=== PATIENT | female | born 1965 | race Caucasian/White ===

== ENCOUNTER → 2018-04-15 | Outpatient (CLI) | payer MEDICAID | LOC: FIMAGING 14:28 | PROVIDERS: ATTEND Physician Assistant | DX: Z01.818 Encounter for other preprocedural examination (principal); M16.11 Unilateral primary osteoarthritis, right hip; M25.451 Effusion, right hip ==

== ENCOUNTER 2018-05-12 06:01 | Inpatient (IN) | payer MEDICAID, OTHER ==
[~2018-05-12 06:01] MED LIST: ROPIVACAINE 0.2% 80 MG, EPINEPHrine 0.2 MG, KETOROLAC TROMETHAMINE 30 MG, morphINE 10 M... IU ONE; TRANEXAMIC ACID 1,000 MG in NS 100 ML IV ONE
--- NOTE | 2018-05-12 06:25 | PDIAF ---
- Diagnosis Diagnosis: right hip djd Code Status: Full Code - Medication Management Discharge Medications: Medications to Continue on Transfer NK [No Known Home Meds] 04/18/18 [Last Taken Unknown] Discharge Medications: Refer to the Discharge Home Medication list for PRN reason. - Orders Services needed: Physical Therapy Diet Recommendation: no restrictions on diet Diet Texture: Regular Texture Diet Additional Instructions: TOTAL JOINT ARTHROPLASTY DISCHARGE INSTRUCTIONS 1. Your surgeon follows the [facility] protocol for reducing your risk of DVT (blood clots) following surgery. Medication will be ordered to prevent blood clots. A sudden increase in calf pain and/or swelling could indicate a blood clot in your leg. If this occurs, please call your surgeon or his/her esl instructional assistant. An ultrasound of the leg may be necessary to diagnose a blood clot. If you have conditions that make you a higher risk for blood clots, your surgeon may use more aggressive ways to prevent them. Notify your surgeon if you think you are a high risk for blood clots. 2. Wear your white surgical stockings (BRETT hose) for 2 weeks. This decreases your swelling and may help prevent blood clots. It is ok to remove BRETT hose at night time to give your legs a break. 3. Swelling and bruising in the surgical leg is common. If you feel that it is excessive, please notify your surgeon. 4. Elevate your surgical leg with the ankle above the hip several times every day. Please keep the leg straight when you elevate by putting pillows under your foot. Do not put pillows under your knee. This will make being able to fully straighten more difficult. This is uncomfortable, but try to do it as much as possible. 5. For total knee replacements use compressive wrap on your knee for 3-5 days after surgery, then you can discontinue it. 6. Use a walker or crutches for 1-2 weeks. Progress your weight-bearing as tolerated. You may start to use a cane when you feel stable and safe. 7. You will receive physical therapy instructions in the hospital. Continue those exercises at home. There are additional exercises in the total joint booklet you were given before surgery. Outpatient physical therapy will begin 7- 10 days after surgery. Please schedule this in advance. 8. Use ice on your knee at least 3-5 times every day for 30 minutes. This helps reduce pain and swelling. Also use it at night before falling asleep. 9. Leave your surgical dressing in place for 2 weeks. Your dressing is water resistant, but not waterproof. Cover it with Saran Wrap or Vtkrd-c-Vxya before showering. You may shower as soon as you feel safe entering a shower. If you notice bleeding from your incision 2 or 3 days after surgery, please notify your surgeon. 10. Due to narcotics, decreased activity and altered diet, most patients experience constipation after surgery. Use ephy-ngp-vqvrqui stool softeners while you are on narcotics. 11. You may drive a car when you are comfortable bearing weight, have good muscular control of your leg and are off narcotics. This usually occurs 2-4 weeks after surgery, depending on which leg was operated on. 12. If there are questions not addressed here, please refer the [facility] book given for more information. If you still have questions, please contact your surgeon s office. 13. If you have a life-threatening emergency, please call 911 and go to the emergency room immediately. For non-life threatening emergencies, please call your physicians office for advice before going to the emergency room. - Follow Up Care Current Providers and Referrals: Matilda Thomas [Primary Care Provider] - Neto Singer MD [Medical Doctor] -
--- NOTE | 2018-05-12 06:25 | PDHPUP ---
History & Physical Update H&P update statement: This history and physical update is based on an assessment of the patient which was completed after admission or registration (within 24 hours), but prior to the surgery/procedure. H&P update: no change in patient's condition since H&P completed
[2018-05-12] MEDS ORDERED: ceFAZolin 2 GM/DEXTROSE 100 ML IV ONE (06:27)
[2018-05-12] MEDS ORDERED: FAMOTIDINE 20 MG TAB PO ONE (06:27)
[2018-05-12] MEDS ORDERED: ACETAMINOPHEN 325 MG TAB PO ONE (06:27)
[2018-05-12] MEDS ORDERED: MIDAZOLAM 2 MG/2 ML VIAL IVP ONE (06:43)
--- NOTE | 2018-05-12 06:43 | PDANEPAE ---
ANE History of Present Illness OA here for R ANNEMARIE ANE Past Medical History - Cardiovascular History Hx Hypertension: No Hx Arrhythmias: No Hx Chest Pain: No Hx Coronary Artery / Peripheral Vascular Disease: No Hx CHF / Valvular Disease: No Hx Palpitations: No - Pulmonary History Hx COPD: No Hx Asthma/Reactive Airway Disease: No Hx Recent Upper Respiratory Infection: No Hx Oxygen in Use at Home: No Hx Sleep Apnea: No Sleep Apnea Screening Result - Last Documented: Negative - Neurologic History Hx Cerebrovascular Accident: No Hx Seizures: No Hx Dementia: No - Endocrine History Hx Diabetes: No - Renal History Hx Renal Disorders: No - Liver History Hx Hepatic Disorders: No - Neurological & Psychiatric Hx Hx Neurological and Psychiatric Disorders: Yes Neurological / Psychiatric History 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 - Cancer History Hx Cancer: No - GI History Hx Gastrointestinal Disorders: No - Other Health History Other Health History: none - Chronic Pain History Chronic Pain: No - Surgical History Prior Surgeries: none ANE Review of Systems Review of Systems: - Exercise capacity METS (RN): 5 METS ANE Patient History - Allergies Allergies/Adverse Reactions: No Known Allergies Allergy (Verified 05/12/18 06:36) - Home Medications Home medications: home medication list seen and reviewed Home Medications: NK [No Known Home Meds] 04/18/18 [Last Taken Unknown] - NPO status NPO Status: no food or drink >8 hours NPO Since - Liquids (Date): 05/12/18 NPO Since - Liquids (Time): 05:30 NPO Since - Solids (Date): 05/11/18 NPO Since - Solids (Time): 21:00 - Anes Hx Anes Hx: post operative nausea - Smoking Hx Smoking Status: Never smoked - Alcohol Use Alcohol Use: None - Family Anes Hx Family Anes Hx: none Family Hx Anesthesia Complications: none ANE Labs/Vital Signs - Vital Signs Vital Signs: reviewed preoperatively; see RN documention for details Height: 165.1 cm Weight: 58.967 kg ANE Physical Exam - Airway Neck exam: FROM Mallampati Score: Class 2 Mouth exam: normal dental/mouth exam - Pulmonary Pulmonary: no respiratory distress, clear to auscultation - Cardiovascular Cardiovascular: regular rate and rhythym, no murmur, rub, or gallop - ASA Status ASA Status: II ANE Anesthesia Plan Anesthesia Plan: GA with mask, spinal
[2018-05-12] MEDS ORDERED: LR 1,000 ML IV ONE (06:49)
[2018-05-12] MEDS ORDERED: LIDOCAINE 1% 2 ML INJ ID PRN (06:49)
[2018-05-12] MEDS ORDERED: PROPOFOL/EMULSION 500 MG/50 ML BOTTLE IV ONE (06:49)
[2018-05-12] MEDS ORDERED: ceFAZolin 1 GM/5 ML SYR ONE (06:53)
[2018-05-12] MEDS ORDERED: ACETAMINOPHEN 325 MG TAB ONE (07:07)
[2018-05-12] MEDS ORDERED: BUPIVACAINE/DEXTROSE 7.5MG/ML 2 ML SPINAL AMP SP ONE (07:18)
[2018-05-12] MEDS ORDERED: ePHEDrine SULFATE 25 MG/5 ML SYR ONE (07:57)
[2018-05-12] MEDS ORDERED: PROPOFOL 200 MG/20 ML VIAL ONE (08:36)
[2018-05-12] MEDS ORDERED: PROMETHAZINE HCL 25 MG/ML INJ IVP PRN ×2 (08:55→09:06)
[2018-05-12] MEDS ORDERED: ONDANSETRON DISINTEGRATING 4 MG TAB PO PRN (08:55)
[2018-05-12] MEDS ORDERED: DIPHENOXYLATE/ATROPINE LOMOTIL 1 TAB PO PRN (08:55)
[2018-05-12] MEDS ORDERED: PROMETHAZINE HCL 25 MG SUPPR PR PRN (08:55)
[2018-05-12] MEDS ORDERED: LACTULOSE 20 GM/30 ML UDCUP PO PRN (08:55)
[2018-05-12] MEDS ORDERED: BISACODYL 10 MG SUPP PR PRN (08:55)
[2018-05-12] MEDS ORDERED: ONDANSETRON 4 MG/2 ML VIAL IVP PRN ×2 (08:55→09:06)
[2018-05-12] MEDS ORDERED: diphenhydrAMINE 25 MG CAP PO PRN (08:55)
[2018-05-12] MEDS ORDERED: METOCLOPRAMIDE 10 MG/2 ML VIAL IVP PRN (08:55)
[2018-05-12] MEDS ORDERED: POLYETHYLENE GLYCOL 3350 17 GM PKT PO PRN (08:55)
[2018-05-12] MEDS ORDERED: TEMAZEPAM 15 MG CAP PO PRN (08:55)
[2018-05-12] MEDS ORDERED: MAGNESIUM HYDROXIDE 30 ML UDCUP PO PRN (08:55)
[2018-05-12] MEDS ORDERED: TRANEXAMIC ACID 650 MG TAB PO SCH (09:00)
[2018-05-12] MEDS ORDERED: ACETAMINOPHEN 500 MG TAB PO PRN (09:06)
[2018-05-12] MEDS ORDERED: NALOXONE HCL 0.4 MG/ML INJ IVP PRN (09:06)
[2018-05-12] MEDS ORDERED: oxyCODONE IR 5 MG TAB PO PRN (09:06)
[2018-05-12] MEDS ORDERED: fentaNYL 100 MCG/2 ML INJ IVP PRN (09:06)
[2018-05-12] MEDS ORDERED: HYDROmorphONE/DILAUDID 1 MG/ML INJ IVP PRN (09:06)
[2018-05-12] MEDS ORDERED: HYDROCODONE/APAP 5/325 TAB PO PRN (09:06)
--- NOTE | 2018-05-12 09:09 | POSTANESTH ---
Post Anesthetic Evaluation Cardiovascular Status: Normal, Stable, Similar to Pre-Op Cond Respiratory Status: Normal, Stable, Similar to Pre-op Cond. Level of Consciousness/Mental Status: Can Participate in Eval, Alert and Oriented Pain Control: Adequate, Prn Tx Ordered Nausea/Vomiting Control: Adequate, Prn Tx Ordered
[2018-05-12] MEDS ORDERED: fentaNYL 100 MCG/2 ML INJ ONE (09:19)
[2018-05-12] MEDS: oxyCODONE IR 5 MG TAB PO PRN ×5 (10:44→22:20)
[2018-05-12] MEDS: SENNOSIDES/DOCUSATE SODIUM TAB PO SCH ×2 (11:07→20:01)
[2018-05-12] MEDS: ACETAMINOPHEN 325 MG TAB PO SCH ×3 (11:23→23:58)
[2018-05-12] MEDS: CYCLOBENZAPRINE 10 MG TAB PO PRN (13:13)
[2018-05-12] MEDS: ceFAZolin 2 GM/DEXTROSE 100 ML IV SCH ×2 (15:06→21:49)
[2018-05-12] MEDS: TRANEXAMIC ACID 650 MG TAB PO SCH ×2 (15:07→21:35)
--- NOTE | 2018-05-12 17:24 | PDMN ---
Medical Necessity Medical necessity: [facility] IP only surgery; cpt [id number] R ANNEMARIE
[2018-05-12] MEDS: ASPIRIN 325 MG TAB PO SCH (20:01)
[2018-05-12] MEDS: FAMOTIDINE 20 MG TAB PO SCH (20:01)
[2018-05-12] MEDS: LR 1,000 ML IV SCH (22:18)
[2018-05-13] MEDS: ACETAMINOPHEN 325 MG TAB PO SCH ×4 (05:00→23:54)
[2018-05-13] MEDS: oxyCODONE IR 5 MG TAB PO PRN ×3 (05:00→20:25)
[2018-05-13] MEDS: TRANEXAMIC ACID 650 MG TAB PO SCH (05:01)
[2018-05-13] MEDS: LR 1,000 ML IV SCH (05:03)
--- NOTE | 2018-05-13 07:18 | PDIAF ---
- Diagnosis Diagnosis: right hip djd Code Status: Full Code - Medication Management Discharge Medications: Medications to Continue on Transfer Aspirin [Aspirin 325 mg (*)] 325 mg PO DAILY tab 05/13/18 [Last Taken Unknown] oxyCODONE IR [Oxycodone Ir (*)] 5 - 10 mg PO Q3HRS PRN #50 tab 05/13/18 [Last Taken Unknown] Discharge Medications: Refer to the Discharge Home Medication list for PRN reason. - Orders Services needed: Physical Therapy Diet Recommendation: no restrictions on diet Diet Texture: Regular Texture Diet Additional Instructions: TOTAL JOINT ARTHROPLASTY DISCHARGE INSTRUCTIONS 1. Your surgeon follows the [facility] protocol for reducing your risk of DVT (blood clots) following surgery. Medication will be ordered to prevent blood clots. A sudden increase in calf pain and/or swelling could indicate a blood clot in your leg. If this occurs, please call your surgeon or his/her event marketing assistant. An ultrasound of the leg may be necessary to diagnose a blood clot. If you have conditions that make you a higher risk for blood clots, your surgeon may use more aggressive ways to prevent them. Notify your surgeon if you think you are a high risk for blood clots. 2. Wear your white surgical stockings (BRETT hose) for 2 weeks. This decreases your swelling and may help prevent blood clots. It is ok to remove BRETT hose at night time to give your legs a break. 3. Swelling and bruising in the surgical leg is common. If you feel that it is excessive, please notify your surgeon. 4. Elevate your surgical leg with the ankle above the hip several times every day. Please keep the leg straight when you elevate by putting pillows under your foot. Do not put pillows under your knee. This will make being able to fully straighten more difficult. This is uncomfortable, but try to do it as much as possible. 5. For total knee replacements use compressive wrap on your knee for 3-5 days after surgery, then you can discontinue it. 6. Use a walker or crutches for 1-2 weeks. Progress your weight-bearing as tolerated. You may start to use a cane when you feel stable and safe. 7. You will receive physical therapy instructions in the hospital. Continue those exercises at home. There are additional exercises in the total joint booklet you were given before surgery. Outpatient physical therapy will begin 7- 10 days after surgery. Please schedule this in advance. 8. Use ice on your knee at least 3-5 times every day for 30 minutes. This helps reduce pain and swelling. Also use it at night before falling asleep. 9. Leave your surgical dressing in place for 2 weeks. Your dressing is water resistant, but not waterproof. Cover it with Saran Wrap or Qnjwv-z-Rfpq before showering. You may shower as soon as you feel safe entering a shower. If you notice bleeding from your incision 2 or 3 days after surgery, please notify your surgeon. 10. Due to narcotics, decreased activity and altered diet, most patients experience constipation after surgery. Use cdgg-jvi-tmfmhlm stool softeners while you are on narcotics. 11. You may drive a car when you are comfortable bearing weight, have good muscular control of your leg and are off narcotics. This usually occurs 2-4 weeks after surgery, depending on which leg was operated on. 12. If there are questions not addressed here, please refer the [facility] book given for more information. If you still have questions, please contact your surgeon s office. 13. If you have a life-threatening emergency, please call 911 and go to the emergency room immediately. For non-life threatening emergencies, please call your physicians office for advice before going to the emergency room. - Follow Up Care Current Providers and Referrals: Matilda Thomas [Primary Care Provider] - Neto Singer MD [Medical Doctor] -
--- NOTE | 2018-05-13 07:20 | SOAPPROG ---
SOAP Progress Note Assessment/Plan: Assessment: s/p ifeanyi Plan:symptomatic low bp likely spinal related stable currently d/c home when cleared by pt f/u at two weeks dvt precautions reviewed 05/13/18 07:18 Subjective: dizzy when standing no cp or sob abdoul po mild pain currently Objective: Vital Signs Temp Pulse Resp BP Pulse Ox 36.8 C 73 15 80/61 L 98 05/13/18 04:00 05/13/18 04:58 05/13/18 04:00 05/13/18 04:58 05/13/18 04:00 Laboratory Results 05/13/18 05:14 05/12/18 05/13/18 05/14/18 05:59 05:59 05:59 Intake Total 1920 Output Total 2205 Balance -285 dressing intact intact pf,df,ehl toes warm and pink neg homans jose xrays stable reduction no fx or lucency ICD10 Worksheet Patient Problems: Problems Problem Status Onset Hip arthritis Acute - ICD10 Problem Qualifiers (1) Hip arthritis
[2018-05-13] MEDS: ASPIRIN 325 MG TAB PO SCH (08:48)
[2018-05-13] MEDS: FAMOTIDINE 20 MG TAB PO SCH ×2 (08:48→20:24)
[2018-05-13] MEDS: SENNOSIDES/DOCUSATE SODIUM TAB PO SCH ×2 (08:49→20:24)
[2018-05-13] MEDS: CYCLOBENZAPRINE 10 MG TAB PO PRN ×2 (10:25→18:54)
--- NOTE | 2018-05-13 14:53 | ASMTCMCOM ---
CM Note CM Note Notes: PT rec home/outpatient. Pt medically stable for d/c with [facility]. Orders to be obtained via [employer]. Pt phone/address verified. Date Signed: 05/13/2018 01:19 PM Electronically Signed By:DEIRDRE Oswald
--- NOTE | 2018-05-13 18:38 | GOP ---
[f rep st] OPERATIVE REPORT DATE OF OPERATION: 05/12/2018 SURGEON: eNto Singer MD THINNER SPRAYER: Robi Vargas, COURT ADMINISTRATOR, [facility], who was medical necessity for the entirety of the case. PREOPERATIVE DIAGNOSIS: Right hip degenerative joint disease. POSTOPERATIVE DIAGNOSIS: Right hip degenerative joint disease. PROCEDURE PERFORMED: Right total hip arthroplasty-MAKOplasty/anterior. FINDINGS: SPECIMENS: To pathology, femoral head. ESTIMATED BLOOD LOSS: 200 cc. INDICATIONS: Prisca is a 53-year-old woman who has end-stage arthritis to her right hip. Clinical and radiographic features consistent with hip arthritis. She has failed all attempts at conservative management. I have, therefore, recommended operative intervention. I outlined the surgical procedu re, risks, benefits, alternatives, and she wished to proceed. DESCRIPTION OF PROCEDURE: The patient was identified in the preanesthesia area. The right hip clear ly demarcated as the operative site with indelible marker. She was given 2 g of Ancef intravenously en route to the operative suite. In the OR spinal anesthetic was placed. She was positioned in a deshpande pine position. The pelvis and both lower extremities were sterilely prepped and draped in usual [facility] ion. Appropriate time-out procedure was carried out. Attention was first turned to the left hemipel vis. A 2 cm incision was made across the iliac crest. 3 pins were then placed with the pelvic refer ence array. Attention was then turned to the right hip. An anterior approach was made. Thick subcu taneous flaps were elevated. The fascia of the tensor was opened longitudinally and the tensor retra cted laterally. The underlying vascular structures were identified, ligated, cauterized, and transec nury. Retractors were then placed into an extracapsular position. T capsulotomy was made. The retra ctors were placed in an intracapsular position. An acetabular checkpoint placed. A bony wedge was w ithdrawn from the femoral neck as was the remaining femoral head. The acetabular labral soft tissue was sharply excised. The bony landmarks were entered into the computer in usual fashion. Using the MAKOplasty robot, resection was made for a blank mm acetabular reamer. This was placed an opening an gle of 40 degrees and anteversion of 20 degrees. A blank size acetabular component was then impacted , confirmed to be fully seated. A 0-degree X3 liner was then placed, confirmed to be fully seated. Attention was then turned to the femur which was delivered through the use of extension of the table, soft tissue releases, and placement of retractors. The proximal canal was opened and serial broachi ng carried out to a size 4 stem. A size 4 stem was then used in a trial reduction with head of intra operative fluoroscopy revealed appropriate leg length synagogue and no evidence of instability thro ugh the flexion-extension arc. She was stable to full extension. External rotation, 90 degrees with out subluxation. The trial components were withdrawn. A final stem was then impacted, confirmed to be fully seated. The biologics head was impacted across the cleansed trunnion. The hip was irrigate d and hip reduced. The hip was taken through full range of motion, was stable and appropriate. The subcu tissue was injected with a joint cocktail of ropivacaine, morphine, Toradol, and epinephrine. The fascia was closed using 0 Vicryl. A 10-Taiwanese drain was placed and connected to bulb suction. S ubcutaneous tissue closed using 2-0 Monocryl and a Zip fix tie placed at the superficial margin. Pre ssure dressing was applied. The patient was awakened, extubated and taken to recovery room in good stable condition. TOTAL TOURNIQUET TIME: None. COMPLICATIONS: None. IMPLANTS: The Delmer trident 2 acetabular shell, size blank, size 4 femoral Accolate stem and biolo gics head, 0 degree X3 liner. DISPOSITION: To the recovery room, then the floor. She is weightbearing as tolerated. Anterior hip precautions. /[id number]/MODL
[2018-05-14] MEDS: ACETAMINOPHEN 325 MG TAB PO SCH ×2 (05:24→13:02)
--- NOTE | 2018-05-14 07:42 | SOAPPROG ---
SOAP Progress Note Assessment/Plan: Assessment: 2 days s/p R ANNEMARIE. Doing well and pain controlled. BP normalized Plan: d/c home today with home health cont pain meds as ordered f/u at [facility] in 14 days WBAT 05/14/18 07:39 Subjective: 2 days s/p R ANNEMARIE. States she is feeling better with minimal pain. Denies fever, chills, nausea, vomitting, SOB, CP, calf pain, numbness or tingling. Objective: Vital Signs Temp Pulse Resp BP Pulse Ox 37.1 C 79 16 103/60 97 05/14/18 03:45 05/14/18 03:45 05/14/18 03:45 05/14/18 03:45 05/14/18 03:45 Laboratory Results 05/14/18 05:22 05/13/18 05/14/18 05/15/18 05:59 05:59 05:59 Intake Total 1920 950 Output Total 2205 2000 Balance -285 -1050 Physical Exam - Physical Exam General Appearance: WD/WN, alert, no apparent distress Peripheral Pulses: 1+: dorsalis-pedis (R), dorsalis-pedis (L) Skin: normal color, warm/dry, No rash Extremities: normal inspection, normal capillary refill, swelling, No normal range of motion, No non-tender, No pedal edema, No calf tenderness, No Lolis's sign Neuro/Psych: alert, normal mood/affect, oriented x 3 ICD10 Worksheet Patient Problems: Problems Problem Status Onset Hip arthritis Acute
--- NOTE | 2018-05-14 07:43 | PDIAF ---
- Diagnosis Diagnosis: right hip djd Code Status: Full Code - Medication Management Discharge Medications: Medications to Continue on Transfer Aspirin [Aspirin 325 mg (*)] 325 mg PO DAILY tab 05/13/18 [Last Taken Unknown] oxyCODONE IR [Oxycodone Ir (*)] 5 - 10 mg PO Q3HRS PRN #50 tab 05/13/18 [Last Taken Unknown] Discharge Medications: Refer to the Discharge Home Medication list for PRN reason. - Orders Services needed: Physical Therapy Diet Recommendation: no restrictions on diet Diet Texture: Regular Texture Diet Activity/Weight Bearing Restrictions: WBAT Additional Instructions: TOTAL JOINT ARTHROPLASTY DISCHARGE INSTRUCTIONS 1. Your surgeon follows the [facility] protocol for reducing your risk of DVT (blood clots) following surgery. Medication will be ordered to prevent blood clots. A sudden increase in calf pain and/or swelling could indicate a blood clot in your leg. If this occurs, please call your surgeon or his/her nurses medical assistants phlebotomists. An ultrasound of the leg may be necessary to diagnose a blood clot. If you have conditions that make you a higher risk for blood clots, your surgeon may use more aggressive ways to prevent them. Notify your surgeon if you think you are a high risk for blood clots. 2. Wear your white surgical stockings (BRETT hose) for 2 weeks. This decreases your swelling and may help prevent blood clots. It is ok to remove BRETT hose at night time to give your legs a break. 3. Swelling and bruising in the surgical leg is common. If you feel that it is excessive, please notify your surgeon. 4. Elevate your surgical leg with the ankle above the hip several times every day. Please keep the leg straight when you elevate by putting pillows under your foot. Do not put pillows under your knee. This will make being able to fully straighten more difficult. This is uncomfortable, but try to do it as much as possible. 5. For total knee replacements use compressive wrap on your knee for 3-5 days after surgery, then you can discontinue it. 6. Use a walker or crutches for 1-2 weeks. Progress your weight-bearing as tolerated. You may start to use a cane when you feel stable and safe. 7. You will receive physical therapy instructions in the hospital. Continue those exercises at home. There are additional exercises in the total joint booklet you were given before surgery. Outpatient physical therapy will begin 7- 10 days after surgery. Please schedule this in advance. 8. Use ice on your knee at least 3-5 times every day for 30 minutes. This helps reduce pain and swelling. Also use it at night before falling asleep. 9. Leave your surgical dressing in place for 2 weeks. Your dressing is water resistant, but not waterproof. Cover it with Saran Wrap or Mfgfo-o-Mdki before showering. You may shower as soon as you feel safe entering a shower. If you notice bleeding from your incision 2 or 3 days after surgery, please notify your surgeon. 10. Due to narcotics, decreased activity and altered diet, most patients experience constipation after surgery. Use wuge-fei-egzjblt stool softeners while you are on narcotics. 11. You may drive a car when you are comfortable bearing weight, have good muscular control of your leg and are off narcotics. This usually occurs 2-4 weeks after surgery, depending on which leg was operated on. 12. If there are questions not addressed here, please refer the [facility] book given for more information. If you still have questions, please contact your surgeon s office. 13. If you have a life-threatening emergency, please call 911 and go to the emergency room immediately. For non-life threatening emergencies, please call your physicians office for advice before going to the emergency room. - Follow Up Care Current Providers and Referrals: Matilda Thomas [Primary Care Provider] - Neto Singer MD [Medical Doctor] -
[2018-05-14] MEDS: oxyCODONE IR 5 MG TAB PO PRN (08:22)
[2018-05-14] MEDS: CYCLOBENZAPRINE 10 MG TAB PO PRN (08:23)
[2018-05-14] MEDS: ASPIRIN 325 MG TAB PO SCH (08:23)
[2018-05-14] MEDS: SENNOSIDES/DOCUSATE SODIUM TAB PO SCH (08:23)
[2018-05-14] MEDS: FAMOTIDINE 20 MG TAB PO SCH (08:24)
[2018-05-14 11:11] VITALS: BP 101/64
--- NOTE | 2018-05-14 11:18 | ASMTLACE ---
DEMETRIUS Length of stay for Answers: 3 days current admission Acuity / Level of Answers: Yes Care: Did the patient have an inpatient admission? # of Emergency department Answers: 0 visits in the last 6 months Score: 6 Date Signed: 05/14/2018 11:17 AM Electronically Signed By:DEIRDRE Oswald
--- NOTE | 2018-05-14 11:19 | ASMTCMCOM ---
CM Note CM Note Notes: Pt did not d/c yesterday, Cathi with [facility] notified pt d/c today. Date Signed: 05/14/2018 11:18 AM Electronically Signed By:DEIRDRE Oswald
--- NOTE | 2018-05-15 16:02 | ASDISCHSUM ---
Discharge Information Plan Status:Home with Home Health Medically Cleared to Leave: Discharge Date:05/14/2018 01:37 PM CM D/C Disposition:Home Health Service ADT D/C Disposition:Home, Routine, Self-Care Projected Discharge Date:05/13/2018 11:00 AM Transportation at D/C: Discharge Delay Reason: Follow-Up Date:05/13/2018 11:00 AM Discharge Slot: Final Diagnosis: Placement Information Referral Type:*Home Health Care Services Referral ID:[id number] Provider Name:[facility] Address 1:[address] [place] [address] Address 2: City:[place] Selection Factors: State:[place] Patient Contact Information Contact Name:HEMALATHA Relationship: Address:[address] [place] [address] Work Phone: [facility]:[place] Alternate Phone: [facility]/Zip Code:[place] [address] Email: Financial Information Financial Class:Medicaid Primary Plan Desc[place] Primary Plan Number:[id number] Secondary Plan Desc: Secondary Plan Number: Assessment Information LACE LACE Length of stay for Answers: 3 days current admission Acuity / Level of Answers: Yes Care: Did the patient have an inpatient admission? # of Emergency department Answers: 0 visits in the last 6 months Score: 6 Date Signed: 05/14/2018 11:17 AM Electronically Signed By:DEIRDRE Oswald [facility] Progress Note CM Note CM Note Notes: PT rec home/outpatient. Pt medically stable for d/c with [facility] PT. Orders to be obtained via [employer]. Pt phone/address verified. Date Signed: 05/13/2018 01:19 PM Electronically Signed By:DEIRDRE Oswald [facility] CM Progress Note CM Note CM Note Notes: Pt did not d/c yesterday, Cathi with [facility] notified pt d/c today. Date Signed: 05/14/2018 11:18 AM Electronically Signed By:DEIRDRE Oswald Intervention Information
--- NOTE | 2018-05-29 07:56 | GDS ---
[f rep st] DISCHARGE SUMMARY ADMISSION DIAGNOSIS: Right hip degenerative joint disease. DISCHARGE DIAGNOSIS: Right hip degenerative joint disease. PROCEDURE: Right total hip arthroplasty. HISTORY OF PRESENT ILLNESS: The patient is a 53-year-old woman with end-stage arthritis to her hip. She presents for scheduled elective total hip replacement. HOSPITAL COURSE: Patient was admitted to the hospital floor. She progressed slowly with physical th erapy. At the time of discharge, she has tolerated oral diet. Pain is well controlled on oral medic jacquelyn. She is voiding without difficulty. Dressing is clean, dry, and intact. She has no calf swell ing or tenderness. X-rays are stable and anatomic without fracture or lucency. DISCHARGE ACTIVITY: Weightbearing as tolerated. Anterior hip precautions. Daily dressing changes. No soaking. No falling. FOLLOWUP: At 2 weeks. DISCHARGE MEDICATIONS: Aspirin 325 mg p.o. daily for 6 weeks. Oxycodone 5-10 mg p.o. 6 hours p.r.n. pain. /[id number]/MODL
== END 2018-05-14 13:37 | disposition home health service (06) | DRG 301 ==
LOC: F3N 06:01
PROVIDERS: ADMIT Orthopaedic Surgery; ATTEND Orthopaedic Surgery
DX: M16.11 Unilateral primary osteoarthritis, right hip (principal)
CPT/HCPCS: 97110-GP; 97116-GP; 97161-GP; 97166-GO; 97535-GO; C1713; J0171; J0690; J1885; J2250; J2270; J2405; J2704; J2795; J3010

== ENCOUNTER → 2018-06-23 | Outpatient (CLI) | payer MEDICAID | LOC: BMCIMAGING 09:55 | PROVIDERS: ATTEND Physician Assistant | DX: Z47.1 Aftercare following joint replacement surgery (principal); Z96.641 Presence of right artificial hip joint ==

== ENCOUNTER 2018-09-15 09:21 | Inpatient (IN) | payer MEDICAID ==
--- NOTE | 2018-09-15 06:37 | PDIAF ---
- Diagnosis Diagnosis: left hip djd Code Status: Full Code - Medication Management Discharge Medications: electronically signed and located in the Home Medication List. - Orders Services needed: Home Care, Physical Therapy Home Care Face to Face: I certify that this patient was under my care and that I had the required [id number] encounter meeting the encounter requirements on the discharge day. My findings support the fact that the patient is homebound as defined in Home Care Face to Face Continued: CMS Chapter 7 Medicare Benefits Manual 30.1.1 , The condition of the patient is such that there exists a normal inability to leave home and consequently, leaving home would require a considerable and taxing effort. Diet Recommendation: no restrictions on diet Diet Texture: Regular Texture Diet Additional Instructions: TOTAL JOINT ARTHROPLASTY DISCHARGE INSTRUCTIONS 1. Your surgeon follows the [facility] protocol for reducing your risk of DVT (blood clots) following surgery. Medication will be ordered to prevent blood clots. A sudden increase in calf pain and/or swelling could indicate a blood clot in your leg. If this occurs, please call your surgeon or his/her technology assistant. An ultrasound of the leg may be necessary to diagnose a blood clot. If you have conditions that make you a higher risk for blood clots, your surgeon may use more aggressive ways to prevent them. Notify your surgeon if you think you are a high risk for blood clots. 2. Wear your white surgical stockings (BRETT hose) for 2 weeks. This decreases your swelling and may help prevent blood clots. It is ok to remove BRETT hose at night time to give your legs a break. 3. Swelling and bruising in the surgical leg is common. If you feel that it is excessive, please notify your surgeon. 4. Elevate your surgical leg with the ankle above the hip several times every day. Please keep the leg straight when you elevate by putting pillows under your foot. Do not put pillows under your knee. This will make being able to fully straighten more difficult. This is uncomfortable, but try to do it as much as possible. 5. For total knee replacements use compressive wrap on your knee for 3-5 days after surgery, then you can discontinue it. 6. Use a walker or crutches for 1-2 weeks. Progress your weight-bearing as tolerated. You may start to use a cane when you feel stable and safe. 7. You will receive physical therapy instructions in the hospital. Continue those exercises at home. There are additional exercises in the total joint booklet you were given before surgery. Outpatient physical therapy will begin 7- 10 days after surgery. Please schedule this in advance. 8. Use ice on your knee at least 3-5 times every day for 30 minutes. This helps reduce pain and swelling. Also use it at night before falling asleep. 9. Leave your surgical dressing in place for 2 weeks. Your dressing is water resistant, but not waterproof. Cover it with Saran Wrap or Myvhp-q-Yjev before showering. You may shower as soon as you feel safe entering a shower. If you notice bleeding from your incision 2 or 3 days after surgery, please notify your surgeon. 10. Due to narcotics, decreased activity and altered diet, most patients experience constipation after surgery. Use yjqe-ncx-bzffsbq stool softeners while you are on narcotics. 11. You may drive a car when you are comfortable bearing weight, have good muscular control of your leg and are off narcotics. This usually occurs 2-4 weeks after surgery, depending on which leg was operated on. 12. If there are questions not addressed here, please refer the [facility] book given for more information. If you still have questions, please contact your surgeon s office. 13. If you have a life-threatening emergency, please call 911 and go to the emergency room immediately. For non-life threatening emergencies, please call your physicians office for advice before going to the emergency room. - Follow Up Care Current Providers and Referrals: Berta Breaux DO [Primary Care Provider] - Neto Singer MD [Medical Doctor] -
[2018-09-15] MEDS ORDERED: ceFAZolin 1 GM/5 ML SYR ONE (10:13)
[2018-09-15] MEDS ORDERED: FAMOTIDINE 20 MG TAB PO ONE (10:39)
[2018-09-15] MEDS ORDERED: ceFAZolin 2 GM/DEXTROSE 100 ML IV ONE (10:39)
[2018-09-15] MEDS ORDERED: ACETAMINOPHEN 325 MG TAB PO ONE (10:39)
--- NOTE | 2018-09-15 11:10 | PDANEPAE ---
ANE History of Present Illness L total hip arthroplasty. ANE Past Medical History - Cardiovascular History Hx Hypertension: No Hx Arrhythmias: No Hx Chest Pain: No Hx Coronary Artery / Peripheral Vascular Disease: No Hx CHF / Valvular Disease: No Hx Palpitations: No Cardiovascular History Comment: very low bp's after surgery in april - Pulmonary History Hx COPD: No Hx Asthma/Reactive Airway Disease: No Hx Recent Upper Respiratory Infection: No Hx Oxygen in Use at Home: No Hx Sleep Apnea: No Sleep Apnea Screening Result - Last Documented: Negative - Neurologic History Hx Cerebrovascular Accident: No Hx Seizures: No Hx Dementia: No - Endocrine History Hx Diabetes: No Hypothyroid: No Hyperthyroid: No Obesity: mild - Renal History Hx Renal Disorders: No - Liver History Hx Hepatic Disorders: No - Neurological & Psychiatric Hx Hx Neurological and Psychiatric Disorders: Yes Neurological / Psychiatric History 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 - Cancer History Hx Cancer: No - Congenital Disorder History Hx Congenital Disorders: No - GI History GERD: no Hx Gastrointestinal Disorders: No - Other Health History Other Health History: none - Chronic Pain History Chronic Pain: No - Surgical History Prior Surgeries: none ANE Review of Systems Review of Systems: - Exercise capacity METS (RN): 5 METS ANE Patient History - Allergies Allergies/Adverse Reactions: No Known Allergies Allergy (Verified 09/03/18 11:50) - Home Medications Home Medications: Magnesium Citrate 09/15/18 [Last Taken 09/14/18] - Anes Hx Anes Hx: post operative nausea - Smoking Hx Smoking Status: Never smoked Marijuana use: Yes - Alcohol Use Alcohol Use: Other (2 drinks/week) - Family Anes Hx Family Anes Hx: none Family Hx Anesthesia Complications: none ANE Labs/Vital Signs - Vital Signs Height: 165.1 cm Weight: 58.967 kg ANE Physical Exam - Airway Neck exam: FROM Mallampati Score: Class 2 - Pulmonary Pulmonary: clear to auscultation - Cardiovascular Cardiovascular: regular rate and rhythym - ASA Status ASA Status: II ANE Anesthesia Plan Anesthesia Plan: spinal
--- NOTE | 2018-09-15 11:12 | PDGENHP ---
History & Physical Chief Complaint: left hip pain History of Present Illness: here for ifeanyi secondary to hip pain Pertinent Past, Social, Family History: none Relevant Physical Exam: hip pain. see h and p. no change Cardiorespiratory Assessment: intact
[2018-09-15] MEDS ORDERED: LR 1,000 ML IV ONE (11:20)
[2018-09-15] MEDS ORDERED: MIDAZOLAM 2 MG/2 ML VIAL IVP ONE (11:39)
[2018-09-15] MEDS ORDERED: MIDAZOLAM 2 MG/2 ML VIAL ONE (11:41)
[2018-09-15] MEDS ORDERED: PROPOFOL 200 MG/20 ML VIAL ONE ×3 (11:42→13:26)
[2018-09-15] MEDS ORDERED: BUPIVACAINE/DEXTROSE 7.5MG/ML 2 ML SPINAL AMP SP ONE (12:15)
[2018-09-15] MEDS ORDERED: ePHEDrine SULFATE 25 MG/5 ML SYR ONE (13:15)
[2018-09-15] MEDS ORDERED: ONDANSETRON 4 MG/2 ML VIAL IVP PRN ×2 (13:35→13:43)
[2018-09-15] MEDS ORDERED: NALOXONE HCL 0.4 MG/ML INJ IVP PRN (13:35)
[2018-09-15] MEDS ORDERED: fentaNYL 100 MCG/2 ML INJ IVP PRN (13:35)
[2018-09-15] MEDS ORDERED: BISACODYL 10 MG SUPP PR PRN (13:43)
[2018-09-15] MEDS ORDERED: POLYETHYLENE GLYCOL 3350 17 GM PKT PO PRN (13:43)
[2018-09-15] MEDS ORDERED: ONDANSETRON DISINTEGRATING 4 MG TAB PO PRN (13:43)
[2018-09-15] MEDS ORDERED: DIPHENOXYLATE/ATROPINE LOMOTIL 1 TAB PO PRN (13:43)
[2018-09-15] MEDS ORDERED: diphenhydrAMINE 25 MG CAP PO PRN (13:43)
[2018-09-15] MEDS ORDERED: LACTULOSE 20 GM/30 ML UDCUP PO PRN (13:43)
[2018-09-15] MEDS ORDERED: PROMETHAZINE HCL 25 MG SUPPR PR PRN (13:43)
[2018-09-15] MEDS ORDERED: PROMETHAZINE HCL 25 MG/ML INJ IVP PRN (13:43)
[2018-09-15] MEDS ORDERED: TEMAZEPAM 15 MG CAP PO PRN (13:43)
[2018-09-15] MEDS ORDERED: METOCLOPRAMIDE 10 MG/2 ML VIAL IVP PRN (13:43)
[2018-09-15] MEDS ORDERED: MAGNESIUM HYDROXIDE 30 ML UDCUP PO PRN (13:43)
--- NOTE | 2018-09-15 13:45 | POSTOPPROG ---
Post Op Note Date of Operation: 09/15/18 Surgeon: Neto Singer Power And Recovery Superintendent: paige Anesthesiologist: jon Anesthesia: Spinal Pre-op Diagnosis: left hip djd\ Post-op Diagnosis: same Indication: same Procedure: left ifeanyi Inf/Abcess present in the surg proc area at time of surgery?: No Depth: Deep Incisional (Fascial) EBL: 100-500 Drains: Hemovac
[2018-09-15] MEDS ORDERED: LR 1,000 ML IV SCH (14:00)
[2018-09-15] MEDS ORDERED: HYDROmorphONE/DILAUDID 2 MG/ML INJ ONE (14:21)
--- NOTE | 2018-09-15 14:21 | PDMN ---
Medical Necessity Medical [place] [facility]: 53 yo s/p L ANNEMARIE, [facility] IP Only
[2018-09-15] MEDS: HYDROmorphONE/DILAUDID 2 MG/ML INJ IVP PRN ×3 (14:24→14:38)
--- NOTE | 2018-09-15 15:15 | POSTANESTH ---
Post Anesthetic Evaluation Cardiovascular Status: Normal, Stable Respiratory Status: Normal, Stable Level of Consciousness/Mental Status: Can Participate in Eval Pain Control: Adequate, Prn Tx Ordered Nausea/Vomiting Control: Adequate, Prn Tx Ordered Complications Possibly Related to Anesthesia: None Noted
[2018-09-15] MEDS: oxyCODONE IR 5 MG TAB PO PRN ×3 (15:38→22:55)
[2018-09-15] MEDS: ACETAMINOPHEN 325 MG TAB PO SCH ×2 (17:35→22:56)
[2018-09-15] MEDS: CYCLOBENZAPRINE 10 MG TAB PO PRN (17:35)
[2018-09-15] MEDS: SENNOSIDES/DOCUSATE SODIUM TAB PO SCH (20:30)
[2018-09-15] MEDS: ceFAZolin 2 GM/DEXTROSE 100 ML IV SCH (20:30)
[2018-09-15] MEDS: FAMOTIDINE 20 MG TAB PO SCH (20:31)
[2018-09-15] MEDS: TRANEXAMIC ACID 650 MG TAB PO SCH (20:31)
[2018-09-15] MEDS: ASPIRIN 325 MG TAB PO SCH (21:11)
[2018-09-16] MEDS: CYCLOBENZAPRINE 10 MG TAB PO PRN (01:36)
[2018-09-16] MEDS: TRANEXAMIC ACID 650 MG TAB PO SCH ×2 (04:57→11:06)
[2018-09-16] MEDS: ceFAZolin 2 GM/DEXTROSE 100 ML IV SCH (04:58)
[2018-09-16] MEDS: ACETAMINOPHEN 325 MG TAB PO SCH ×3 (05:00→17:50)
[2018-09-16] MEDS: oxyCODONE IR 5 MG TAB PO PRN ×3 (05:41→21:03)
--- NOTE | 2018-09-16 06:54 | PDIAF ---
- Diagnosis Diagnosis: left hip djd Code Status: Full Code - Medication Management Discharge Medications: electronically signed and located in the Home Medication List. - Orders Services needed: Home Care, Physical Therapy Home Care Face to Face: I certify that this patient was under my care and that I had the required [id number]-cc-hmwd encounter meeting the encounter requirements on the discharge day. My findings support the fact that the patient is homebound as defined in Home Care Face to Face Continued: CMS Chapter 7 Medicare Benefits Manual 30.1.1 , The condition of the patient is such that there exists a normal inability to leave home and consequently, leaving home would require a considerable and taxing effort. Diet Recommendation: no restrictions on diet Diet Texture: Regular Texture Diet Additional Instructions: TOTAL JOINT ARTHROPLASTY DISCHARGE INSTRUCTIONS 1. Your surgeon follows the [facility] protocol for reducing your risk of DVT (blood clots) following surgery. Medication will be ordered to prevent blood clots. A sudden increase in calf pain and/or swelling could indicate a blood clot in your leg. If this occurs, please call your surgeon or his/her environmental services assistant. An ultrasound of the leg may be necessary to diagnose a blood clot. If you have conditions that make you a higher risk for blood clots, your surgeon may use more aggressive ways to prevent them. Notify your surgeon if you think you are a high risk for blood clots. 2. Wear your white surgical stockings (BRETT hose) for 2 weeks. This decreases your swelling and may help prevent blood clots. It is ok to remove BRETT hose at night time to give your legs a break. 3. Swelling and bruising in the surgical leg is common. If you feel that it is excessive, please notify your surgeon. 4. Elevate your surgical leg with the ankle above the hip several times every day. Please keep the leg straight when you elevate by putting pillows under your foot. Do not put pillows under your knee. This will make being able to fully straighten more difficult. This is uncomfortable, but try to do it as much as possible. 5. For total knee replacements use compressive wrap on your knee for 3-5 days after surgery, then you can discontinue it. 6. Use a walker or crutches for 1-2 weeks. Progress your weight-bearing as tolerated. You may start to use a cane when you feel stable and safe. 7. You will receive physical therapy instructions in the hospital. Continue those exercises at home. There are additional exercises in the total joint booklet you were given before surgery. Outpatient physical therapy will begin 7- 10 days after surgery. Please schedule this in advance. 8. Use ice on your knee at least 3-5 times every day for 30 minutes. This helps reduce pain and swelling. Also use it at night before falling asleep. 9. Leave your surgical dressing in place for 2 weeks. Your dressing is water resistant, but not waterproof. Cover it with Saran Wrap or Xndrw-o-Vslu before showering. You may shower as soon as you feel safe entering a shower. If you notice bleeding from your incision 2 or 3 days after surgery, please notify your surgeon. 10. Due to narcotics, decreased activity and altered diet, most patients experience constipation after surgery. Use rmvd-lta-suwmyxr stool softeners while you are on narcotics. 11. You may drive a car when you are comfortable bearing weight, have good muscular control of your leg and are off narcotics. This usually occurs 2-4 weeks after surgery, depending on which leg was operated on. 12. If there are questions not addressed here, please refer the [facility] book given for more information. If you still have questions, please contact your surgeon s office. 13. If you have a life-threatening emergency, please call 911 and go to the emergency room immediately. For non-life threatening emergencies, please call your physicians office for advice before going to the emergency room. - Follow Up Care Current Providers and Referrals: Berta Breaux DO [Primary Care Provider] - Neto Singer MD [Medical Doctor] -
--- NOTE | 2018-09-16 06:56 | SOAPPROG ---
SOAP Progress Note Assessment/Plan: Assessment: s/p ifeanyi Plan:dc home if stable dvt precautions reviewed needs stable bp for mobility f/u at two weeks 09/16/18 06:54 Subjective: light headed when standing no cp or sob no complaints currently Objective: Vital Signs Temp Pulse Resp BP Pulse Ox 36.9 C 58 L 16 121/107 H 100 09/16/18 00:00 09/16/18 00:00 09/16/18 00:00 09/16/18 04:00 09/16/18 00:00 Laboratory Results 09/16/18 04:25 09/15/18 09/16/18 09/17/18 05:59 05:59 05:59 Intake Total 1555 Output Total 1652 Balance -97 dressing intact intact pf df ehl toes warm and pink neg homans jose xrays stable alignment, opening jon 60 deg, no lucency, concentric reduction ICD10 Worksheet Patient Problems: Problems Problem Status Onset Hip arthritis Acute
[2018-09-16] MEDS: SENNOSIDES/DOCUSATE SODIUM TAB PO SCH ×2 (09:11→21:03)
[2018-09-16] MEDS: ASPIRIN 325 MG TAB PO SCH (09:11)
[2018-09-16] MEDS: FAMOTIDINE 20 MG TAB PO SCH ×2 (09:12→21:03)
--- NOTE | 2018-09-16 11:22 | ASMTLACE ---
DEMETRIUS Length of stay for Answers: 2 days current admission Acuity / Level of Answers: Yes Care: Did the patient have an inpatient admission? # of Emergency department Answers: 0 visits in the last 6 months Score: 5 Date Signed: 09/16/2018 11:21 AM Electronically Signed By:DEIRDRE Oswald
--- NOTE | 2018-09-16 11:23 | ASMTCMCOM ---
CM Note CM Note Notes: Pt had planned OA of hip, will d/c with [facility] PT. Orders to be obtained via [employer]. Maria Luisa at [facility] notified. Date Signed: 09/16/2018 11:22 AM Electronically Signed By:DEIRDRE Oswald
[2018-09-17] MEDS: ACETAMINOPHEN 325 MG TAB PO SCH ×3 (02:03→12:39)
[2018-09-17] MEDS: oxyCODONE IR 5 MG TAB PO PRN ×2 (03:54→11:07)
--- NOTE | 2018-09-17 06:29 | PDIAF ---
- Diagnosis Diagnosis: left hip djd Code Status: Full Code - Medication Management Discharge Medications: electronically signed and located in the Home Medication List. - Orders Services needed: Home Care, Physical Therapy Home Care Face to Face: I certify that this patient was under my care and that I had the required lklj-tr-rqnb encounter meeting the encounter requirements on the discharge day. My findings support the fact that the patient is homebound as defined in Home Care Face to Face Continued: CMS Chapter 7 Medicare Benefits Manual 30.1.1 , The condition of the patient is such that there exists a normal inability to leave home and consequently, leaving home would require a considerable and taxing effort. Diet Recommendation: no restrictions on diet Diet Texture: Regular Texture Diet Additional Instructions: TOTAL JOINT ARTHROPLASTY DISCHARGE INSTRUCTIONS 1. Your surgeon follows the [facility] protocol for reducing your risk of DVT (blood clots) following surgery. Medication will be ordered to prevent blood clots. A sudden increase in calf pain and/or swelling could indicate a blood clot in your leg. If this occurs, please call your surgeon or his/her medical research assistant. An ultrasound of the leg may be necessary to diagnose a blood clot. If you have conditions that make you a higher risk for blood clots, your surgeon may use more aggressive ways to prevent them. Notify your surgeon if you think you are a high risk for blood clots. 2. Wear your white surgical stockings (BRETT hose) for 2 weeks. This decreases your swelling and may help prevent blood clots. It is ok to remove BRETT hose at night time to give your legs a break. 3. Swelling and bruising in the surgical leg is common. If you feel that it is excessive, please notify your surgeon. 4. Elevate your surgical leg with the ankle above the hip several times every day. Please keep the leg straight when you elevate by putting pillows under your foot. Do not put pillows under your knee. This will make being able to fully straighten more difficult. This is uncomfortable, but try to do it as much as possible. 5. For total knee replacements use compressive wrap on your knee for 3-5 days after surgery, then you can discontinue it. 6. Use a walker or crutches for 1-2 weeks. Progress your weight-bearing as tolerated. You may start to use a cane when you feel stable and safe. 7. You will receive physical therapy instructions in the hospital. Continue those exercises at home. There are additional exercises in the total joint booklet you were given before surgery. Outpatient physical therapy will begin 7- 10 days after surgery. Please schedule this in advance. 8. Use ice on your knee at least 3-5 times every day for 30 minutes. This helps reduce pain and swelling. Also use it at night before falling asleep. 9. Leave your surgical dressing in place for 2 weeks. Your dressing is water resistant, but not waterproof. Cover it with Saran Wrap or Nfero-d-Avot before showering. You may shower as soon as you feel safe entering a shower. If you notice bleeding from your incision 2 or 3 days after surgery, please notify your surgeon. 10. Due to narcotics, decreased activity and altered diet, most patients experience constipation after surgery. Use vzui-ubl-zmuqbfk stool softeners while you are on narcotics. 11. You may drive a car when you are comfortable bearing weight, have good muscular control of your leg and are off narcotics. This usually occurs 2-4 weeks after surgery, depending on which leg was operated on. 12. If there are questions not addressed here, please refer the [facility] book given for more information. If you still have questions, please contact your surgeon s office. 13. If you have a life-threatening emergency, please call 911 and go to the emergency room immediately. For non-life threatening emergencies, please call your physicians office for advice before going to the emergency room. - Follow Up Care Current Providers and Referrals: Berta Breaux DO [Primary Care Provider] - Neto Singer MD [Medical Doctor] -
--- NOTE | 2018-09-17 06:31 | SOAPPROG ---
SOAP Progress Note Assessment/Plan: Assessment: s/p ifeanyi Plan:dc home if stable dvt precautions reviewed needs stable bp for mobility f/u at two weeks will repeat xray of pelvis after mobilization and patient has mild buttock pain with wb to assess prosthesis d/c when cleared by pt 09/16/18 06:54 09/17/18 06:29 Subjective: buttocks pain when standing which was different from last time min pain otherwise no current pain no cp or sob does not feel dizzy of low bp Objective: Vital Signs Temp Pulse Resp BP Pulse Ox 36.6 C 77 17 100/57 L 91 L 09/16/18 23:49 09/16/18 23:49 09/16/18 23:49 09/17/18 00:37 09/16/18 23:49 Laboratory Results 09/17/18 04:30 09/16/18 09/17/18 09/18/18 05:59 05:59 05:59 Intake Total 2004 650 Output Total 5294 7325 Balance -522 1259 dressing intact intact pf,df,ehl toes warm and pink neg homans jose no calf swelling or ttp no pain with internal ext rotation of leg ICD10 Worksheet Patient Problems: Problems Problem Status Onset Hip arthritis Acute
[2018-09-17 07:43] VITALS: BP 97/53
[2018-09-17] MEDS: ASPIRIN 325 MG TAB PO SCH (07:55)
[2018-09-17] MEDS: FAMOTIDINE 20 MG TAB PO SCH (07:55)
[2018-09-17] MEDS: SENNOSIDES/DOCUSATE SODIUM TAB PO SCH (07:56)
[2018-09-17] MEDS: CYCLOBENZAPRINE 10 MG TAB PO PRN (12:41)
--- NOTE | 2018-09-17 13:53 | ASMTCMCOM ---
CM Note CM Note Notes: Pt did not end up discharging yesterday. Pt to d/d today, Maria Luisa at [facility] alerted. Orders to be obtained via [employer]. Date Signed: 09/17/2018 01:52 PM Electronically Signed By:DEIRDRE Oswald
--- NOTE | 2018-09-17 16:45 | ASDISCHSUM ---
Discharge Information Plan Status:Home with Home Health Medically Cleared to Leave: Discharge Date:09/17/2018 02:11 PM CM D/C Disposition: ADT D/C Disposition:Home Health Service Projected Discharge Date:09/16/2018 11:00 AM Transportation at D/C: Discharge Delay Reason: Follow-Up Date:09/16/2018 11:00 AM Discharge Slot: Final Diagnosis: Placement Information Referral Type:*Home Health Care Services Referral ID:[id number] Provider Name:[facility] Address 1[address] [facility] [address] Address 2: City:[place] Selection Factors: State:[place] Patient Contact Information Contact Name:HEMALATHA Relationship: Address:[address] Work Phone: [facility]:[place] Alternate Phone: State/Zip Code:[place] [address] Email: Financial Information Financial Class:Medicaid Primary Plan Desc[place] Primary Plan Number:[id number] Secondary Plan Desc: Secondary Plan Number: Assessment Information LACE LACE Length of stay for Answers: 2 days current admission Acuity / Level of Answers: Yes Care: Did the patient have an inpatient admission? # of Emergency department Answers: 0 visits in the last 6 months Score: 5 Date Signed: 09/16/2018 11:21 AM Electronically Signed By:DEIRDRE Oswald [facility] CM Progress Note CM Note CM Note Notes: Pt had planned OA of hip, will d/c with [facility] PT. Orders to be obtained via [employer]. Maria Luisa at [facility] notified. Date Signed: 09/16/2018 11:22 AM Electronically Signed By:DEIRDRE Oswald [facility] CM Progress Note CM Note CM Note Notes: Pt did not end up discharging yesterday. Pt to d/d today, Maria Luisa at [facility] alerted. Orders to be obtained via [employer]. Date Signed: 09/17/2018 01:52 PM Electronically Signed By:DEIRDRE Oswald Intervention Information
--- NOTE | 2018-09-21 09:13 | GDS ---
ADMISSION DIAGNOSIS: Left hip degenerative joint disease. DISCHARGE DIAGNOSIS: Left hip degenerative joint disease. PROCEDURE: Left total hip arthroplasty. HISTORY OF PRESENT ILLNESS: The patient is a 53-year-old woman with end-stage arthritis to her left hip. She returns for elective left total hip replacement. She understands the risks, benefits, and alternatives. HOSPITAL COURSE: The patient was admitted to the hospital floor after uncomplicated total hip arthro plasty. She had once again a protracted recovery, secondary to issues of nausea and low blood pressu re. This was similar to her previous right hip replacement hospitalization. Over the 48 hours, she cleared physical therapy. At the time of discharge, she is tolerating an oral diet. Pain is well co ntrolled on oral medicines. She is voiding without difficulty. Dressing is clean, dry, and intact. She has no calf swelling or tenderness. No Homans. Repeat radiograph demonstrates consistent posit ioning of her components. DISPOSITION: To home. FOLLOWUP: In 2 weeks. Seek attention for increasing redness, swelling, drainage, discharge, or othe r focal complaints. DISCHARGE MEDICATIONS: Oxycodone 5 mg 1 to 2 every 6 hours p.r.n. pain, aspirin 325 mg p.o. daily fo r 6 weeks. /[id number]/MODL
--- NOTE | 2018-09-21 09:58 | GOP ---
DATE OF OPERATION: 09/15/2018 SURGEON: Neto Singer MD TOOL ROOM SUPERVISOR: Ted Vargas, WAREHOUSER, OPERATIONS [employer]IEUTENANT, real estate administrative assistant who was a medical necessity for the entirety of t he case. PREOPERATIVE DIAGNOSIS: Left hip degenerative joint disease. POSTOPERATIVE DIAGNOSIS: Left hip degenerative joint disease. PROCEDURE PERFORMED: Left total hip arthroplasty, MAKOplasty. FINDINGS: SPECIMENS: To Pathology, the femoral head. INDICATIONS: The patient is a 53-year-old woman who returns for left total hip arthroplasty elective ly. She has known me for previous right total hip replacement. She has limitation in range of motio n and daily function, secondary to pain across her left hip. She has failed attempts at conservative management. DESCRIPTION OF PROCEDURE: The patient was identified in the preanesthesia area. The left hip clearl y demarcated as the operative site with indelible marker. She was given 2 g of Ancef intravenously i n route to the operative suite. In the OR, spinal anesthetic was placed. She was positioned in the supine position. The pelvis and both lower extremities were then sterilely prepped and draped in the usual fashion. Appropriate time-out procedure was carried out. Attention was first turned to the right hemipelvis. A 2 cm incision was made over the iliac crest an d 3 pins were then placed. The pelvic reference array was affixed. Attention was then turned to the left hip. An anterior approach was made. Thick subcutaneous flaps were elevated. The fascia was e levated off the tensor and the tensor retracted laterally. The underlying vascular structures were i dentified, ligated, cauterized, and transected. The rectus was lifted off the capsule and retractors placed in an extracapsular position. T-capsular incision was made. The retractors were placed in a n intracapsular position. An acetabular checkpoint was then placed. A bony wedge was withdrawn from the neck using oscillating saw, and the head were removed. The remnants of the acetabular labrum we re sharply excised. The bony landmarks to the acetabulum were entered into the computer in standard fashion. Using the MAKOplasty robot, resections were made for a 54 mm Trident II acetabular shell. A size 54 shell was then impacted and confirmed to be fully seated. Intraoperative fluoroscopy was u tilized demonstrated the cup in a slightly more vertical position, but this was felt to still be stab le and appropriate. A 36 mm inner diameter X3 liner was then placed, confirmed to be fully seated. Attention was then turned to the femur. The femur was delivered through the use of extension of the table, soft tissue releases, and retractor placement. Proximal canal was opened and broached to a si ze 4 stem. Trial reduction with 127 degrees angle size 4 stem and a 36 mm -[address] then [address] aced. This demonstrated slight shortening. In this arrangement, the hip would flex to 90 degrees wi th 45 degrees internal rotation without subluxation and external rotation and full extension maximall y at 90 degrees demonstrated slight subluxation without dislocation. Intraoperative fluoroscopy conf irmed appropriate positioning with once again slightly increased vertical positioning of the cup. The trial femoral stem was withdrawn. A final size 4 stem was placed and confirmed to be fully seate d, and ultimately, a 36 mm -2.5 mm neck length was placed to restore leg lengths. Stability profile demonstrated 90 degrees of flexion, 45 degrees internal rotation, and full extension and external rot ation to 90 degrees without subluxation. The wound was copiously irrigated. A 10-Jordanian drain was placed. The tissue was injected with a armida nt capsule of ropivacaine, morphine, Toradol, and epinephrine. The tensor fascia closed using 0 Vicr yl. The incision was closed using 2-0 Monocryl and a Zip Line closure was placed. A sterile dressin g was placed over the top of this. The patient was awakened, extubated, taken to recovery room in go od, stable condition. TOTAL TOURNIQUET TIME: None. COMPLICATIONS: None. IMPLANTS: [place] Trident II acetabular shell size 54 mm, Trident X3 0-degree polyethylene insert 36 mm, Accolade II 127 degree neck angle hip stem size 4, and a [employer] Delta ceramic head, 36 mm, -2. 5 mm neck length. DISPOSITION: To the recovery room, then the floor. She is weightbearing as tolerated. Anterior hip precautions. /[id number]/[id number]
== END 2018-09-17 14:11 | disposition home health service (06) | DRG 301 ==
LOC: F3N 10:32
PROVIDERS: ADMIT Family Medicine; ATTEND Orthopaedic Surgery
DX: M16.12 Unilateral primary osteoarthritis, left hip (principal)
CPT/HCPCS: 97110-GP; 97116-GP; 97161-GP; 97165-GO; 97530-GO; 97530-GP; 97535-GO; J0171; J0690; J1170; J1885; J2250; J2270; J2405; J2550; J2704; J2795